=== PATIENT | female | born 1995 | race Caucasian/White ===

== ENCOUNTER 2016-10-21 12:23 | Emergency (ER) | payer SELFPAY ==
[~2016-10-21] VITALS: Ht 162.6 cm; Wt 90.4 kg
[2016-10-21 12:34] VITALS: BP 129/82
[2016-10-21] MEDS ORDERED: CEFAZOLIN 1,000 MG ONE (13:19)
[2016-10-21] MEDS ORDERED: CEFAZOLIN 1,000 MG IM ONE (13:30)
== END 2016-10-21 13:27 | disposition home or self-care (01) ==
LOC: ED 13:10
DX: L03.115 Cellulitis of right lower limb (principal); F17.200 Nicotine dependence, unspecified, uncomplicated
CPT/HCPCS: 96372; 99283; J0690

== ENCOUNTER 2016-10-25 12:26 | Emergency (ER) | payer SELFPAY ==
[~2016-10-25] VITALS: Ht 162.6 cm; Wt 89.1 kg
[2016-10-25 12:27] VITALS: BP 123/80
== END 2016-10-25 13:22 | disposition home or self-care (01) ==
LOC: ED 13:00
DX: L02.416 Cutaneous abscess of left lower limb (principal); Z48.01 Encounter for change or removal of surgical wound dressing; F17.210 Nicotine dependence, cigarettes, uncomplicated
CPT/HCPCS: 99282